=== PATIENT | female | born 1995 | race Caucasian/White ===

== ENCOUNTER 2022-05-26 17:18 | Emergency (ER) | payer OTHER ==
[~2022-05-26] VITALS: Ht 152.4 cm; Wt 77.1 kg
== END 2022-05-26 22:28 | disposition home or self-care (01) ==
LOC: ER 17:18
DX: O26.891 Other specified pregnancy related conditions, first trimester (principal); Z3A.08 8 weeks gestation of pregnancy; M54.89 Other dorsalgia

== ENCOUNTER 2022-06-08 10:26 | Emergency (ER) | payer OTHER ==
[~2022-06-08] VITALS: Ht 152.4 cm; Wt 78.0 kg
[2022-06-08] MEDS ORDERED: PRENATAL + DHA1 EAC1 PO (10:48)
== END 2022-06-08 14:59 | disposition home or self-care (01) ==
LOC: ER 10:26
DX: O98.511 Other viral diseases complicating pregnancy, first trimester (principal); U07.1 COVID-19; J98.8 Other specified respiratory disorders; Z3A.10 10 weeks gestation of pregnancy

== ENCOUNTER 2022-06-28 14:52 | Emergency (ER) | payer OTHER ==
[~2022-06-28] VITALS: Ht 152.4 cm; Wt 81.6 kg
[~2022-06-28 14:52] MED LIST: PRENATAL + DHA1 EAC1 PO
== END 2022-06-28 22:18 | disposition home or self-care (01) ==
LOC: ER 14:52
DX: O20.9 Hemorrhage in early pregnancy, unspecified (principal); Z3A.13 13 weeks gestation of pregnancy

== ENCOUNTER 2022-08-08 13:31 | Emergency (ER) | payer OTHER ==
[~2022-08-08] VITALS: Ht 152.4 cm; Wt 83.0 kg
== END 2022-08-08 17:23 | disposition home or self-care (01) ==
LOC: ER 13:31
DX: O26.892 Other specified pregnancy related conditions, second trimester (principal); Z3A.19 19 weeks gestation of pregnancy

== ENCOUNTER 2022-11-07 09:07 | Outpatient (CLI) | payer OTHER | END 2022-11-07 10:42 | disposition home or self-care (01) | LOC: PRENATAL 09:07 | PROVIDERS: ATTEND Obstetrics & Gynecology Maternal & Fetal Medicine | DX: O26.849 Uterine size-date discrepancy, unspecified trimester (principal); O36.8199 Decreased fetal movements, unspecified trimester, other fetus; Z3A.32 32 weeks gestation of pregnancy ==

== ENCOUNTER 2022-12-25 13:10 | Inpatient (IN) | payer OTHER ==
[~2022-12-25] VITALS: Ht 152.4 cm; Wt 3.2 kg
== END 2022-12-29 13:58 | disposition home or self-care (01) | DRG 788 ==
LOC: OBS/DEL 13:10 → O/R 17:17 → LDR 17:17 → O/R 12-26 21:23 → OB/GYN 12-27 01:37
PROVIDERS: ADMIT Obstetrics & Gynecology; ATTEND Obstetrics & Gynecology
PROC: 3E0P7VZ Introduction of Hormone into Female Reproductive, Via Natural or Artificial Opening (ICD-10-PCS; 2022-12-25)
PROC: 4A1HXCZ Monitoring of Products of Conception, Cardiac Rate, External Approach (ICD-10-PCS; 2022-12-25)
PROC: BY4FZZZ Ultrasonography of Third Trimester, Single Fetus (ICD-10-PCS; 2022-12-25)
PROC: 3E033VJ Introduction of Other Hormone into Peripheral Vein, Percutaneous Approach (ICD-10-PCS; 2022-12-26)
PROC: 10D00Z1 Extraction of Products of Conception, Low, Open Approach (ICD-10-PCS; principal; 2022-12-26 22:00)
DX: O41.03X0 Oligohydramnios, third trimester, not applicable or unspecified (principal); O36.5930 Maternal care for other known or suspected poor fetal growth, third trimester, not applicable or unspecified; O36.8130 Decreased fetal movements, third trimester, not applicable or unspecified; O99.824 Streptococcus B carrier state complicating childbirth; O99.214 Obesity complicating childbirth; E66.8 Other obesity; O62.1 Secondary uterine inertia; Z3A.38 38 weeks gestation of pregnancy; Z37.0 Single live birth; Z20.822 Contact with and (suspected) exposure to COVID-19